=== PATIENT | male | born 1960 | race Caucasian/White ===

== ENCOUNTER 2023-01-18 08:00 | Outpatient (CLI) | payer BC, SELFPAY ==
[2023-01-18 14:12] LABS: Albumin* 4.5 g/dL (3.3-5.0); Chloride* 106 mmol/L (96-114); Sodium* 140 mmol/L (135-149)
[2023-01-18 14:13] LABS: Potassium* 4.6 mmol/L (3.6-5.1)
[2023-01-18 14:15] LABS: Alanine Aminotransferase* 39 U/L (4-50); Alkaline Phosphatase* 57 U/L (40-150); Aspartate Amino Transferase* 29 U/L (12-35); Bilirubin Total* 0.6 mg/dL (0.1-1.5); Blood Urea Nitrogen* 18 mg/dL (7-30); Calcium* 9.3 mg/dL (8.4-10.6); Carbon Dioxide* 27 mmol/L (20-32); Cholesterol* 254 mg/dL (90-199); Estimated Glomerular Filt Rate 86 ml/min; Glucose* 97 mg/dL (60-115); Total Protein* 7.4 g/dL (6.0-8.3); Triglycerides* 136 mg/dL (40-149)
[2023-01-18 14:16] LABS: HDL Cholesterol* 70 mg/dL (>=40); LDL Cholesterol Calculated 157 mg/dL (<100)
[2023-01-18 14:34] LABS: PSA Screen* 2.71 ng/mL (0.10-4.00)
[2023-01-20 10:51] LABS: Magnesium* 2.2 mg/dL (1.5-2.6)
[2023-01-20 11:41] LABS: Vitamin B12* 358 pg/mL (243-894)
== END 2023-01-18 08:01 | disposition home or self-care (01) ==
PROVIDERS: PCP Physician Assistant Medical; Visit Provider Physician Assistant Medical
DX: Z00.00 Encounter for general adult medical examination without abnormal findings (principal); E78.5 Hyperlipidemia, unspecified; Z12.5 Encounter for screening for malignant neoplasm of prostate; Z13.29 Encounter for screening for other suspected endocrine disorder
CPT/HCPCS: 80053; 80061; 82607; 83735; 84153; 84443

== ENCOUNTER 2024-02-07 10:08 | Outpatient (CLI) | payer BC, SELFPAY | END 2024-02-07 10:09 | disposition home or self-care (01) | PROVIDERS: PCP Physician Assistant Medical; Visit Provider Physician Assistant Medical | DX: Z13.220 Encounter for screening for lipoid disorders (principal); Z13.228 Encounter for screening for other metabolic disorders; Z12.5 Encounter for screening for malignant neoplasm of prostate | CPT/HCPCS: 80053; 80061; G0103 ==